=== PATIENT | male | born 1985 | race Caucasian/White ===

== ENCOUNTER 2024-02-09 19:25 | Emergency (ER) | payer SELFPAY ==
[~2024-02-09] VITALS: Ht 175.3 cm; Wt 129.3 kg
[2024-02-09 19:41] VITALS: BP_SYST 148; PULSE 98; RESP 20; TEMP 97.7; O2SAT 98
[2024-02-09] MEDS: LIDOCAINE PATCH 5% 1 EA TP ONE (20:11)
[2024-02-09] MEDS: KETOROLAC TROMETHAMINE 60 MG/2 ML VIAL IM ONE (20:12)
[2024-02-09] MEDS ORDERED: MORPHINE 4 MG INJ. 4 MG/ML VIAL IVP ONE (21:00)
[2024-02-09] MEDS: MORPHINE 4 MG INJ. 4 MG/ML VIAL IM ONE (21:26)
[2024-02-09] MEDS ORDERED: DICL75TA5 PO (21:32)
[2024-02-09] MEDS ORDERED: LIDO1ADH22 TP (21:32)
[2024-02-09 22:13] VITALS: BP_SYST 148; PULSE 98; RESP 20; TEMP 97.7; O2SAT 98
== END 2024-02-09 22:13 | disposition home or self-care (01) ==
LOC: SED 19:25
DX: S39.012A Strain of muscle, fascia and tendon of lower back, initial encounter (principal); E66.01 Morbid (severe) obesity due to excess calories; Z68.41 Body mass index [BMI] 40.0-44.9, adult; Z88.8 Allergy status to other drugs, medicaments and biological substances; X58.XXXA Exposure to other specified factors, initial encounter; Y93.89 Activity, other specified; Y92.89 Other specified places as the place of occurrence of the external cause; Y99.8 Other external cause status
CPT/HCPCS: 99284; 72100; 96372; J1885; J2270